=== PATIENT | female | born 1935 | race Two or more races ===

== ENCOUNTER 2022-12-15 16:40 | Inpatient (IN) | payer OTHER ==
[~2022-12-15] VITALS: Ht 149.9 cm; Wt 53.1 kg
[2022-12-16] MEDS ORDERED: ONDANSETRON 4 MG/2 ML VIAL IVP PRN (18:30)
[2022-12-16] MEDS ORDERED: ACETAMINOPHEN 325 MG TAB PO PRN (18:30)
[2022-12-16] MEDS ORDERED: MAG SULF 2000 MG/WATER PREMIX 50 ML IV PRN (18:30)
[2022-12-16] MEDS ORDERED: HYDROcodone/APAP 5/325 MG 1 TAB TAB PO PRN (18:30)
[2022-12-16] MEDS ORDERED: KCL 20 MEQ IN 100 mL PREMIX 200 ML IV PRN (18:30)
[2022-12-16] MEDS ORDERED: MAGNESIUM OXIDE 400 MG TAB PO PRN (18:30)
[2022-12-16] MEDS ORDERED: POTASSIUM CHLORIDE 10 MEQ TABER PO PRN (18:30)
[2022-12-16] MEDS ORDERED: MORPHINE SULFATE 2 MG/ML SYR IVP PRN (18:30)
[2022-12-16] MEDS ORDERED: DONE10TA37 PO (18:38)
[2022-12-16] MEDS ORDERED: GABA300C PO (18:38)
[2022-12-16] MEDS ORDERED: MIRT-120 PO (18:38)
[2022-12-16] MEDS ORDERED: LOSA-272 PO (18:38)
[2022-12-16] MEDS ORDERED: ONDA-26 PO (18:38)
[2022-12-16] MEDS ORDERED: DEXTROSE 50% 50 ML SYR IVP PRN (19:25)
[2022-12-16] MEDS ORDERED: ONDANSETRON 4 MG TAB PO SCH (19:25)
[2022-12-16 19:30] VITALS: BP 150/81; PULSE 62; RESP 17; RESP 62; TEMP 98; O2SAT 95
[2022-12-16] MEDS ORDERED: LANTUS SUBQ ×2 (19:55→20:10)
[2022-12-16 20:00] VITALS: PULSE 62; RESP 17; O2SAT 95
[2022-12-16] MEDS: MIRTAZAPINE 15 MG TAB PO SCH (20:31)
[2022-12-16] MEDS: GABAPENTIN 300 MG CAP PO SCH (20:31)
[2022-12-16] MEDS: INSULIN LISPRO SLIDING SCALE 100 UNITS/ML VIAL SUBQ PRN (20:40)
[2022-12-16] MEDS: BLOOD GLUCOSE MONITORING 1 DEV DEV FS SCH (20:41)
[2022-12-17 04:00] VITALS: BP 153/54; PULSE 66; RESP 16; TEMP 97.3; O2SAT 97
[2022-12-17 06:33] LABS: BASOPHILS % (AUTO) 0.5 % (0.0-2.0); EOSINOPHILS # (AUTO) 0.2 K/uL (0-0.4); EOSINOPHILS % (AUTO) 2.4 % (0.0-4.0); HEMATOCRIT 33.7 % (36-48); HEMOGLOBIN 11.5 g/dL (12.0-16.0); LYMPHOCYTES # (AUTO) 2.6 K/uL (2.5-16.5); MEAN CORPUSCULAR HEMOGLOBIN 27 pg (27-31); MEAN CORPUSCULAR HGB CONC 34 g/dL (33-37); MONOCYTES # (AUTO) 0.3 K/uL (0.8-1.0); MONOCYTES % (AUTO) 4.4 % (1.7-9.3); NEUTROPHILS # (AUTO) 3.3 K/uL (1.8-7.7); NEUTROPHILS % (AUTO) 51.7 % (42.2-75.2); PLATELET COUNT (AUTO) 181 K/uL (140-450); RED BLOOD CELL COUNT(AUTO) 4.27 MIL/uL (4.20-5.40); RED CELL DISTRIBUTION WIDTH 15.3 % (11.6-13.7); WHITE BLOOD COUNT (AUTO) 6.5 K/uL (4.8-10.8)
[2022-12-17] MEDS: BLOOD GLUCOSE MONITORING 1 DEV DEV FS SCH ×4 (06:45→21:06)
[2022-12-17 06:53] LABS: ALANINE AMINOTRANSFERASE 13 U/L (12-78); ALBUMIN 2.8 g/dL (3.4-5.0); ALKALINE PHOSPHATASE 86 U/L (50-136); ANION GAP 7.6 (8-16); ASPARTATE AMINOTRANSFERASE 18 U/L (15-37); CALCIUM 8.9 mg/dL (8.5-10.1); CARBON DIOXIDE 31.7 mmol/L (21-32); CHLORIDE 104 mmol/L (98-107); CHOL/HDL RATIO 4.6 (1-4.5); CHOLESTEROL 231 mg/dL (<200); CREATININE 0.8 mg/dL (0.6-1.3); GLUCOSE 143 mg/dL (74-106); HDL CHOLESTEROL 50 mg/dL (40-60); LDL (CALC) 120 mg/dL (60-100); MAGNESIUM 1.6 mg/dL (1.8-2.4); POTASSIUM 4.3 mmol/L (3.5-5.1); SODIUM SERUM 139 mmol/L (136-145); TOTAL BILIRUBIN 0.3 mg/dL (0.0-1.0); TOTAL PROTEIN, SERUM 6.2 g/dL (6.4-8.2); TRIGLYCERIDES 307 mg/dL (30-150); UREA NITROGEN, BLOOD 14 mg/dL (7-18)
[2022-12-17 08:00] VITALS: PULSE 60; RESP 16; O2SAT 95
[2022-12-17] MEDS: GABAPENTIN 300 MG CAP PO SCH ×2 (09:23→21:06)
[2022-12-17] MEDS: LOSARTAN 50 MG TAB PO SCH (09:23)
[2022-12-17] MEDS: DONEPEZIL 10 MG TAB PO SCH (09:24)
[2022-12-17] MEDS: INSULIN LISPRO SLIDING SCALE 100 UNITS/ML VIAL SUBQ PRN ×2 (11:36→21:04)
[2022-12-17 16:00] VITALS: BP 137/62; PULSE 64; RESP 16; TEMP 97.9; O2SAT 97
[2022-12-17 20:00] VITALS: BP 133/57; PULSE 71; RESP 16; TEMP 97.6; O2SAT 92
[2022-12-17] MEDS: MIRTAZAPINE 15 MG TAB PO SCH (21:06)
[2022-12-18] MEDS: INSULIN LANTUS 100 UNITS/ML 10 ML VIAL SUBQ SCH ×3 (00:06→21:12)
[2022-12-18 04:00] VITALS: BP 133/64; PULSE 68; RESP 16; TEMP 97.4; O2SAT 97
[2022-12-18 06:53] LABS: BASOPHILS % (AUTO) 0.7 % (0.0-2.0); EOSINOPHILS # (AUTO) 0.3 K/uL (0-0.4); EOSINOPHILS % (AUTO) 5.7 % (0.0-4.0); HEMATOCRIT 33.7 % (36-48); HEMOGLOBIN 11.3 g/dL (12.0-16.0); LYMPHOCYTES # (AUTO) 2.9 K/uL (2.5-16.5); LYMPHOCYTES % (AUTO) 50.3 % (20.5-51.1); MEAN CORPUSCULAR HEMOGLOBIN 27 pg (27-31); MEAN CORPUSCULAR HGB CONC 33 g/dL (33-37); MEAN CORPUSCULAR VOLUME 79.3 fL (80-94); MONOCYTES # (AUTO) 0.4 K/uL (0.8-1.0); MONOCYTES % (AUTO) 7.5 % (1.7-9.3); NEUTROPHILS # (AUTO) 2.1 K/uL (1.8-7.7); NEUTROPHILS % (AUTO) 35.8 % (42.2-75.2); PLATELET COUNT (AUTO) 179 K/uL (140-450); RED BLOOD CELL COUNT(AUTO) 4.25 MIL/uL (4.20-5.40); RED CELL DISTRIBUTION WIDTH 15.5 % (11.6-13.7); WHITE BLOOD COUNT (AUTO) 5.9 K/uL (4.8-10.8)
[2022-12-18] MEDS: BLOOD GLUCOSE MONITORING 1 DEV DEV FS SCH ×4 (07:10→20:42)
[2022-12-18 07:16] LABS: ALANINE AMINOTRANSFERASE 12 U/L (12-78); ALBUMIN 2.8 g/dL (3.4-5.0); ALKALINE PHOSPHATASE 89 U/L (50-136); ANION GAP 10.4 (8-16); ASPARTATE AMINOTRANSFERASE 17 U/L (15-37); CALCIUM 8.8 mg/dL (8.5-10.1); CARBON DIOXIDE 29.7 mmol/L (21-32); CHLORIDE 104 mmol/L (98-107); CREATININE 0.8 mg/dL (0.6-1.3); GLUCOSE 151 mg/dL (74-106); MAGNESIUM 1.8 mg/dL (1.8-2.4); POTASSIUM 4.1 mmol/L (3.5-5.1); SODIUM SERUM 140 mmol/L (136-145); TOTAL BILIRUBIN 0.3 mg/dL (0.0-1.0); UREA NITROGEN, BLOOD 15 mg/dL (7-18)
[2022-12-18 08:00] VITALS: BP 116/49; PULSE 70; RESP 16; TEMP 96.6; O2SAT 100
[2022-12-18] MEDS: LOSARTAN 50 MG TAB PO SCH (08:29)
[2022-12-18] MEDS: DONEPEZIL 10 MG TAB PO SCH (08:30)
[2022-12-18] MEDS: GABAPENTIN 300 MG CAP PO SCH ×2 (08:30→20:41)
[2022-12-18 08:48] VITALS: PULSE 68; RESP 16; O2SAT 97
[2022-12-18] MEDS: INSULIN LISPRO SLIDING SCALE 100 UNITS/ML VIAL SUBQ PRN ×3 (11:36→20:50)
[2022-12-18 16:00] VITALS: BP 147/54; PULSE 67; RESP 18; TEMP 98.1; O2SAT 96
[2022-12-18 20:00] VITALS: BP 144/49; PULSE 63; RESP 18; TEMP 97.4; O2SAT 94
[2022-12-18] MEDS: MIRTAZAPINE 15 MG TAB PO SCH (20:42)
[2022-12-19] MEDS: BLOOD GLUCOSE MONITORING 1 DEV DEV FS SCH ×4 (06:41→21:24)
[2022-12-19 07:22] LABS: BASOPHILS % (AUTO) 0.6 % (0.0-2.0); EOSINOPHILS # (AUTO) 0.2 K/uL (0-0.4); EOSINOPHILS % (AUTO) 2.9 % (0.0-4.0); HEMOGLOBIN 12.1 g/dL (12.0-16.0); LYMPHOCYTES # (AUTO) 2.6 K/uL (2.5-16.5); LYMPHOCYTES % (AUTO) 45.8 % (20.5-51.1); MEAN CORPUSCULAR HEMOGLOBIN 27 pg (27-31); MEAN CORPUSCULAR HGB CONC 34 g/dL (33-37); MEAN CORPUSCULAR VOLUME 79.3 fL (80-94); MONOCYTES # (AUTO) 0.2 K/uL (0.8-1.0); MONOCYTES % (AUTO) 4.2 % (1.7-9.3); NEUTROPHILS # (AUTO) 2.7 K/uL (1.8-7.7); NEUTROPHILS % (AUTO) 46.5 % (42.2-75.2); PLATELET COUNT (AUTO) 218 K/uL (140-450); RED BLOOD CELL COUNT(AUTO) 4.54 MIL/uL (4.20-5.40); RED CELL DISTRIBUTION WIDTH 15.5 % (11.6-13.7); WHITE BLOOD COUNT (AUTO) 5.7 K/uL (4.8-10.8)
[2022-12-19 08:00] VITALS: BP 145/70; PULSE 65; PULSE 76; RESP 16; RESP 18; TEMP 97; O2SAT 94; O2SAT 95
[2022-12-19 08:02] LABS: ALANINE AMINOTRANSFERASE 16 U/L (12-78); ALBUMIN 3.3 g/dL (3.4-5.0); ALKALINE PHOSPHATASE 93 U/L (50-136); ANION GAP 10.1 (8-16); ASPARTATE AMINOTRANSFERASE 20 U/L (15-37); CARBON DIOXIDE 31.1 mmol/L (21-32); CHLORIDE 104 mmol/L (98-107); CREATININE 0.8 mg/dL (0.6-1.3); GLUCOSE 127 mg/dL (74-106); MAGNESIUM 1.9 mg/dL (1.8-2.4); POTASSIUM 4.2 mmol/L (3.5-5.1); SODIUM SERUM 141 mmol/L (136-145); TOTAL BILIRUBIN 0.3 mg/dL (0.0-1.0); TOTAL PROTEIN, SERUM 6.8 g/dL (6.4-8.2); UREA NITROGEN, BLOOD 10 mg/dL (7-18)
[2022-12-19] MEDS: INSULIN LANTUS 100 UNITS/ML 10 ML VIAL SUBQ SCH ×2 (09:10→21:23)
[2022-12-19] MEDS: LOSARTAN 50 MG TAB PO SCH (09:13)
[2022-12-19] MEDS: DONEPEZIL 10 MG TAB PO SCH (09:13)
[2022-12-19] MEDS: GABAPENTIN 300 MG CAP PO SCH ×2 (09:13→21:19)
[2022-12-19] MEDS: INSULIN LISPRO SLIDING SCALE 100 UNITS/ML VIAL SUBQ PRN ×2 (11:25→21:24)
[2022-12-19 16:00] VITALS: BP 149/77; PULSE 76; RESP 18; TEMP 97.7; O2SAT 96
[2022-12-19 20:00] VITALS: BP 137/60; PULSE 73; RESP 18; TEMP 98.8; O2SAT 97
[2022-12-20 04:00] VITALS: BP 135/50; PULSE 57; RESP 18; TEMP 97.7; O2SAT 97
[2022-12-20 04:27] VITALS: BP 135/50; PULSE 57; RESP 18; TEMP 97.7
[2022-12-20] MEDS: BLOOD GLUCOSE MONITORING 1 DEV DEV FS SCH ×2 (06:33→11:39)
[2022-12-20 06:49] LABS: BASOPHILS % (AUTO) 0.6 % (0.0-2.0); EOSINOPHILS # (AUTO) 0.1 K/uL (0-0.4); EOSINOPHILS % (AUTO) 0.9 % (0.0-4.0); HEMATOCRIT 35.2 % (36-48); HEMOGLOBIN 11.9 g/dL (12.0-16.0); LYMPHOCYTES # (AUTO) 2.9 K/uL (2.5-16.5); LYMPHOCYTES % (AUTO) 41.9 % (20.5-51.1); MEAN CORPUSCULAR HEMOGLOBIN 27 pg (27-31); MEAN CORPUSCULAR HGB CONC 34 g/dL (33-37); MEAN CORPUSCULAR VOLUME 79.3 fL (80-94); MONOCYTES # (AUTO) 0.3 K/uL (0.8-1.0); MONOCYTES % (AUTO) 3.9 % (1.7-9.3); NEUTROPHILS # (AUTO) 3.7 K/uL (1.8-7.7); NEUTROPHILS % (AUTO) 52.7 % (42.2-75.2); PLATELET COUNT (AUTO) 238 K/uL (140-450); RED BLOOD CELL COUNT(AUTO) 4.43 MIL/uL (4.20-5.40); RED CELL DISTRIBUTION WIDTH 15.9 % (11.6-13.7)
[2022-12-20 06:58] LABS: ALANINE AMINOTRANSFERASE 15 U/L (12-78); ALBUMIN 3.3 g/dL (3.4-5.0); ALKALINE PHOSPHATASE 89 U/L (50-136); ANION GAP 12.4 (8-16); ASPARTATE AMINOTRANSFERASE 20 U/L (15-37); CALCIUM 8.8 mg/dL (8.5-10.1); CARBON DIOXIDE 27.5 mmol/L (21-32); CHLORIDE 102 mmol/L (98-107); GLUCOSE 113 mg/dL (74-106); MAGNESIUM 1.9 mg/dL (1.8-2.4); POTASSIUM 3.9 mmol/L (3.5-5.1); SODIUM SERUM 138 mmol/L (136-145); TOTAL BILIRUBIN 0.3 mg/dL (0.0-1.0); TOTAL PROTEIN, SERUM 6.8 g/dL (6.4-8.2); UREA NITROGEN, BLOOD 13 mg/dL (7-18)
[2022-12-20 08:00] VITALS: PULSE 89; RESP 18; O2SAT 99
[2022-12-20] MEDS: DONEPEZIL 10 MG TAB PO SCH (10:16)
[2022-12-20] MEDS: LOSARTAN 50 MG TAB PO SCH (10:16)
[2022-12-20] MEDS: GABAPENTIN 300 MG CAP PO SCH (10:16)
[2022-12-20] MEDS: INSULIN LANTUS 100 UNITS/ML 10 ML VIAL SUBQ SCH (10:20)
[2022-12-20 12:22] VITALS: BP 135/84; PULSE 89; RESP 18; TEMP 97.1
== END 2022-12-20 13:25 | DRG 638 ==
LOC: MTU 12-16 17:11
PROVIDERS: ADMIT Internal Medicine; ATTEND Internal Medicine
DX: E11.65 Type 2 diabetes mellitus with hyperglycemia (principal); E44.1 Mild protein-calorie malnutrition; R64 Cachexia; E78.5 Hyperlipidemia, unspecified; F03.90 Unspecified dementia, unspecified severity, without behavioral disturbance, psychotic disturbance, mood disturbance, and anxiety; I10 Essential (primary) hypertension; Z79.4 Long term (current) use of insulin; Z79.899 Other long term (current) drug therapy; Z68.23 Body mass index [BMI] 23.0-23.9, adult
CPT/HCPCS: 36415; 70450; 71045; 80053; 82140; 82948; 83036; 83735; 85025; 87081; 97112; 97116; 97163-GP; 97530; J1815